=== PATIENT | male | born 1975 | race Caucasian/White ===

== ENCOUNTER 2020-03-10 10:09 | Emergency (ER) | payer OTHER ==
[~2020-03-10] VITALS: Ht 182.9 cm; Wt 100.0 kg
--- NOTE | 2020-03-10 10:14 | NUR ---
NO [id number]
[2020-03-10 10:18] VITALS: BP 132/78
--- NOTE | 2020-03-10 10:29 | NUR ---
HERE FOR MED REFILL OF PROZAC AND CHOLESTEROL MEDICATION. PT RAN OUT AND SOONEST APPOINTMENT FOR PRIMARY CARE IS NEXT WEEK.
== END 2020-03-10 10:51 ==
LOC: ED 10:20
DX: E78.5 Hyperlipidemia, unspecified (principal); F33.9 Major depressive disorder, recurrent, unspecified; Z76.0 Encounter for issue of repeat prescription
CPT/HCPCS: 99281